=== PATIENT | female | born 1990 | race Two or more races ===

== ENCOUNTER 2022-04-14 02:48 | Emergency (ER) | payer MEDICAID ==
[~2022-04-14] VITALS: Ht 170.2 cm; Wt 90.1 kg
[2022-04-14 05:00] VITALS: BP 138/94
== END 2022-04-14 06:03 ==
LOC: ER 02:49
DX: S09.90XA Unspecified injury of head, initial encounter (principal); R51.9 Headache, unspecified; X58.XXXA Exposure to other specified factors, initial encounter; Y93.89 Activity, other specified; Y92.89 Other specified places as the place of occurrence of the external cause; Y99.8 Other external cause status
CPT/HCPCS: 70450; 72125; 73080; 99284